=== PATIENT | female | born 1990 | race Caucasian/White ===

== ENCOUNTER 2019-03-05 14:32 | Emergency (ER) | payer MEDICAID ==
[2019-03-05] MEDS ORDERED: Ketorolac 60 MG/2 ML SDV IM ONE (14:50)
--- NOTE | 2019-03-05 15:50 | CR ---
INDICATION: Injury and pain TECHNIQUE: Chest and left ribs 5 views. COMPARISON: None FINDINGS: Cardiovascular and mediastinum: Heart size and vasculature are normal in caliber and appearance. Mediastinum is within normal limits. Lungs and pleural spaces: Lungs are clear. No sign of infiltrate or mass. No sign of pleural effusion. No pneumothorax. Bones and soft tissues: Detailed oblique images of the left ribs demonstrate no fractures or bone lesions. IMPRESSION: Unremarkable chest and left ribs. Dictated by Chinedu Vargas MD @ Mar 05 2019 3:46PM Signed by Dr. Chinedu Vargas @ Mar 05 2019 3:48PM
--- NOTE | 2019-03-05 16:17 | EDM.PDOC ---
ED HPI GENERAL MEDICAL PROBLEM - General Chief Complaint: General Stated Complaint: RIB INJURY Time Seen by Provider: 03/05/19 14:36 Source of Information: Reports: Patient History Limitations: Reports: No Limitations - History of Present Illness INITIAL COMMENTS - FREE TEXT/NARRATIVE: History of present illness: []Patient was wrestling with her boyfriend last night and his knee rammed into her left flank. She states it hurts when she takes a deep breath . She denies being states she had her last day of her menstrual period yesterday. She denies any shortness of breath. She smokes heavily. Review of systems: As per history of present illness and below otherwise all systems reviewed and negative. Past medical history: As per history of present illness and as reviewed below otherwise noncontributory. Surgical history: As per history of present illness and as reviewed below otherwise noncontributory. Social history: No reported history of drug or alcohol abuse. Family history: As per history of present illness and as reviewed below otherwise noncontributory. Physical exam: General: Well developed, well nourished in NAD HEENT: Atraumatic, normocephalic, pupils reactive, negative for conjunctival pallor or scleral icterus, mucous membranes moist, throat clear, neck supple, nontender, trachea midline. Lungs: Clear to auscultation, breath sounds equal bilaterally, chest nontender. Heart: S1S2, regular, negative for clicks, rubs, or JVD. Abdomen: NABS, Soft, nondistended, nontender. Negative for masses or hepatosplenomegaly. Negative for costovertebral tenderness. Pelvis: Stable nontender. Genitourinary: Deferred. Rectal: Deferred. Extremities: Atraumatic, negative for cords or calf pain. Neurovascular unremarkable. Neuro: Awake, alert, oriented. Cranial nerves II through XII unremarkable. Cerebellum unremarkable. Motor and sensory unremarkable throughout. Exam nonfocal. Skin:warm and dry Diagnostics: Chest x-ray with rib series negative for fracture or pneumothorax, [employer]: Toradol IM ED Course: Stable Impression: left Back contusion Prescriptions: None Plan: Use ice, Tylenol and Motrin for pain follow-up with primary care as needed. Definitive disposition and diagnosis as appropriate pending reevaluation and review of above. Left Pain Score (Numeric/FACES): 7 - Related Data Allergies Allergy/AdvReac Type Severity Reaction Status Date / Time No Known Allergies Allergy Verified 03/05/19 14:46 Home Meds: Home Meds . [No Known Home Meds] 03/05/19 [History] Past Medical History - Past Health History Medical/Surgical History: Denies Medical/Surgical History Respiratory History: Reports: Asthma Social & Family History - Family History Family Medical History: Noncontributory - Tobacco Use Smoking Status *Q: Current Every Day Smoker Years of Tobacco use: 10 Packs/Tins Daily: 1 - Recreational Drug Use Recreational Drug Use: No ED ROS GENERAL - Review of Systems Review Of Systems: See Below ED EXAM, GENERAL - Physical Exam Exam: See Below Course - Vital Signs Last Recorded V/S: Last Vital Signs Temp 97.4 F 03/05/19 14:43 Pulse 91 03/05/19 14:43 Resp 18 03/05/19 14:43 BP 156/89 H 03/05/19 14:43 Pulse Ox 99 03/05/19 14:43 - Orders/Labs/Meds Labs: Laboratory Tests 03/05/19 Range/Units 15:55 Urine Color YELLOW Urine Appearance CLEAR Urine pH 6.0 (5.0-8.0) Ur Specific [place] 1.025 (1.001-1.035) Urine Protein NEGATIVE (NEGATIVE) mg/dL Urine Glucose (UA) NEGATIVE (NEGATIVE) mg/dL Urine Ketones NEGATIVE (NEGATIVE) mg/dL Urine Occult Blood NEGATIVE (NEGATIVE) Urine Nitrite NEGATIVE (NEGATIVE) Urine Bilirubin NEGATIVE (NEGATIVE) Urine Urobilinogen 0.2 (<2.0) EU/dL Ur Leukocyte Esterase NEGATIVE (NEGATIVE) Urine RBC 0-1 (0-2/HPF) Urine WBC 0-2 (0-5/HPF) Ur Epithelial Cells FEW (NONE-FEW) Urine Bacteria FEW (NEGATIVE) Meds: Medications Discontinued Medications Generic Name Dose Route Start Last Admin Trade Name Freq PRN Reason Stop Dose Admin Ketorolac Tromethamine 60 mg 03/05/19 14:50 03/05/19 15:09 Toradol IM 03/05/19 14:51 60 mg ONETIME ONE Administration Departure - Departure Time of Disposition: 16:16 Disposition: Home, Self-Care 01 Condition: Good Clinical Impression: Back contusion Qualifiers: Encounter type: initial encounter Laterality: left Qualified Code(s): S20.222A - Contusion of left back wall of thorax, initial encounter - Discharge Information *PRESCRIPTION DRUG MONITORING PROGRAM REVIEWED*: No *COPY OF PRESCRIPTION DRUG MONITORING REPORT IN PATIENT [place]: No Instructions: Musculoskeletal Pain Referrals: PCP,None [Primary Care Provider] - Forms: ED Department Discharge Additional Instructions: The following information is given to patients seen in the emergency department who are being discharged to home. This information is to outline your options for follow-up care. We provide all patients seen in our emergency department with a follow-up referral. The need for follow-up, as well as the timing and circumstances, are variable depending upon the specifics of your emergency department visit. If you don't have a primary care physician on staff, we will provide you with a referral. We always advise you to contact your personal physician following an emergency department visit to inform them of the circumstance of the visit and for follow-up with them and/or the need for any referrals to a consulting specialist. The emergency department will also refer you to a specialist when appropriate. This referral assures that you have the opportunity for follow-up care with a specialist. All of these measure are taken in an effort to provide you with optimal care, which includes your follow-up. Under all circumstances we always encourage you to contact your private physician who remains a resource for coordinating your care. When calling for follow-up care, please make the office aware that this follow-up is from your recent emergency room visit. If for any reason you are refused follow-up, please contact the [facility] at and asked to speak to the emergency department charge nurse. Take Tylenol, ibuprofen and use ice for pain as directed, follow up with your primary care physician, return to ER if symptoms worsen or change. [facility] [place] [id number]
== END 2019-03-05 16:27 | disposition home or self-care (01) ==
LOC: MW.ED 14:32
DX: S20.222A Contusion of left back wall of thorax, initial encounter (principal); F17.210 Nicotine dependence, cigarettes, uncomplicated; W50.0XXA Accidental hit or strike by another person, initial encounter; Y93.72 Activity, wrestling
CPT/HCPCS: 71101; 81001; 96372; 99283; J1885

== ENCOUNTER 2019-09-16 21:41 | Emergency (ER) | payer MEDICAID ==
[2019-09-16] MEDS ORDERED: Acetaminophen/oxyCODONE 325-5 MG Tab PO ONE (22:16)
[2019-09-16] MEDS ORDERED: Amoxicillin/Clavulanate K 875-125 MG Tab PO ONE (22:16)
--- NOTE | 2019-09-16 22:17 | EDM.PDOC ---
ED HPI GENERAL MEDICAL PROBLEM - General Chief Complaint: ENT Problem Stated Complaint: TOOTH ACHE Time Seen by Provider: 09/16/19 22:26 Source of Information: Reports: Patient History Limitations: Reports: No Limitations - History of Present Illness INITIAL COMMENTS - FREE TEXT/NARRATIVE: Patient is 29-year-old female with past medical history of dental caries and recurrent dental problems presenting with chief complaint of dental pain. Patient states that she has had pain for the past 2 weeks. Pain is located in the right lower mandible on a tooth that requires dental work. Patient states that all of the dental work is been postponed secondary to the coronavirus pandemic. Patient states that she is been taken ibuprofen with only minimal relief of pain. Patient denies any fevers, difficulty chewing, difficulty opening her mouth. Patient states that pain is constant and radiates to her right ear. Patient has a dental appointment on September 28 but is trying to get that changed to a sooner date. Pmhx: Per chart Pshx: None Family Hx: noncontributory Comprehensive review of systems performed and otherwise negative as per HPI I have reviewed the triage vital signs Const: Well nourished, well developed, appears stated age Eyes: PERRL, no conjunctival injection HENT: Very poor dentition throughout. Tooth #27 is decayed and tender to palpation. No fluctuance. No trismus. NCAT, Neck supple without meningismus MSK: No gross deformities appreciated Skin: Warm, dry. No rashes Neuro: Alert, hearing screen coordinator II-XII grossly intact. Sensation and motor function of extremities grossly intact. Psych: Appropriate mood and affect Assessment and plan: Patient is 29-year-old female presenting with dental pain. Patient does not have any evidence of a significant dental abscess. Patient has poor dentition and will require the care of a dentist. Patient started on Augmentin for possible periapical abscess. Patient pain is controlled in the emergency department. Patient instructed to follow-up with dentist as soon as possible for further and definitive dental care. Patient given return precautions. All questions addressed and answered. Patient agrees with plan. Right Lower Tooth/Teeth Pain Score (Numeric/FACES): 8 - Related Data Allergies Allergy/AdvReac Type Severity Reaction Status Date / Time No Known Allergies Allergy Verified 09/16/19 22:01 Home Meds: Home Meds . [No Known Home Meds] 10/06/19 [History] Past Medical History - Past Health History Medical/Surgical History: Denies Medical/Surgical History Respiratory History: Reports: Asthma Social & Family History - Family History Family Medical History: Noncontributory - Tobacco Use Smoking Status *Q: Current Every Day Smoker Years of Tobacco use: 15 Packs/Tins Daily: 1 - Recreational Drug Use Recreational Drug Use: No ED ROS ENT - Review of Systems Review Of Systems: See Below ED EXAM, ENT - Physical Exam Exam: See Below Course - Vital Signs Last Recorded V/S: Last Vital Signs Temp 36.7 C 09/16/19 21:53 Pulse 87 09/16/19 21:53 Resp 14 09/16/19 21:53 BP 144/96 H 09/16/19 21:53 Pulse Ox 98 09/16/19 21:53 - Orders/Labs/Meds Meds: Medications Discontinued Medications Generic Name Dose Route Start Last Admin Trade Name Freq PRN Reason Stop Dose Admin Amoxicillin/Clavulanate Potassium 1 tab 09/16/19 22:16 09/16/19 22:42 Augmentin 875 Mg/125 Mg PO 09/16/19 22:17 1 tab ONETIME ONE Administration Oxycodone/Acetaminophen 1 tab 09/16/19 22:16 09/16/19 22:42 Percocet 325-5 Mg PO 09/16/19 22:17 1 tab ONETIME ONE Administration Departure - Departure Time of Disposition: 22:17 Disposition: Home, Self-Care 01 Clinical Impression: Dental caries extending into dentin - Discharge Information Instructions: Dental Caries, Pediatric Referrals: PCP,None [Primary Care Provider] - Forms: ED Department Discharge Additional Instructions: The following information is given to patients seen in the emergency department who are being discharged to home. This information is to outline your options for follow-up care. We provide all patients seen in our emergency department with a follow-up referral. The need for follow-up, as well as the timing and circumstances, are variable depending upon the specifics of your emergency department visit. If you don't have a primary care physician on staff, we will provide you with a referral. We always advise you to contact your personal physician following an emergency department visit to inform them of the circumstance of the visit and for follow-up with them and/or the need for any referrals to a consulting specialist. The emergency department will also refer you to a specialist when appropriate. This referral assures that you have the opportunity for follow-up care with a specialist. All of these measure are taken in an effort to provide you with optimal care, which includes your follow-up. Under all circumstances we always encourage you to contact your private physician who remains a resource for coordinating your care. When calling for follow-up care, please make the office aware that this follow-up is from your recent emergency room visit. If for any reason you are refused follow-up, please contact the [facility] Emergency Department at and asked to speak to the emergency department charge nurse. Medications as prescribed. Follow up with dentist Sepsis Event Note - Evaluation Sepsis Screening Result: No Definite Risk - Focused Exam Vital Signs: Vital Signs Temp Pulse Resp BP Pulse Ox 09/16/19 21:53 36.7 C 87 14 144/96 H 98 Date Exam was Performed: 09/17/19 Time Exam was Performed: 00:08
== END 2019-09-16 22:56 | disposition home or self-care (01) ==
LOC: MW.ED 21:41
DX: K02.9 Dental caries, unspecified (principal); F17.210 Nicotine dependence, cigarettes, uncomplicated
CPT/HCPCS: 99283; A9270; 99282